=== PATIENT | male | born 1995 | race Two or more races ===

== ENCOUNTER 2016-10-17 09:53 | Emergency (ER) | payer OTHER ==
[~2016-10-17] VITALS: Ht 165.1 cm; Wt 93.0 kg
[2016-10-17] MEDS ORDERED: ACETAMINOPHEN 500 MG TAB PO ONE (11:00)
[2016-10-17 12:20] VITALS: BP 129/74
== END 2016-10-17 12:30 | disposition home or self-care (01) ==
LOC: ER 09:53
DX: S02.81XA Fracture of other specified skull and facial bones, right side, initial encounter for closed fracture (principal); S02.19XA Other fracture of base of skull, initial encounter for closed fracture; S02.2XXA Fracture of nasal bones, initial encounter for closed fracture; S09.90XA Unspecified injury of head, initial encounter; Y08.89XA Assault by other specified means, initial encounter; Y93.89 Activity, other specified; Y99.8 Other external cause status; Y92.89 Other specified places as the place of occurrence of the external cause
CPT/HCPCS: 70450; 70486